=== PATIENT | male | born 1945 | race Caucasian/White ===

== ENCOUNTER → 2020-09-11 07:50 | Outpatient (CLI) | payer MEDICARE ==
[2020-09-11 08:33] LABS: INR 1.11 (0.85-1.17); PROTIME 13.2 SECONDS (11.6-15.0)
[2020-09-11 08:34] LABS: APTT 33.2 SECONDS (22.8-39.4)
[2020-09-11 08:41] LABS: % SATURATION 72 % (15-55); IRON 205 ug/dl (35-150); TOTAL IRON BIND CAPACITY 281 ug/dl (260-445); UNSAT IRON BIND CAPACITY 76 ug/dl (150-375)
[2020-09-11 08:58] LABS: ALBUMIN 3.5 g/dL (3.4-5.0); ALKALINE PHOSPHATASE 114 U/L (30-120); ALT (SGPT) 121 U/L (10-68); BILIRUBIN - DIRECT 0.13 mg/dL (0.00-0.30); BILIRUBIN - INDIRECT 0.87 mg/dL (0.00-1.00); CHOL - HDL RATIO 4.4 ratio (2.3-4.9); CHOLESTEROL, TOTAL 154 mg/dL (0-200); GAMMA GT 117 U/L (5-85); HDL CHOLESTEROL 35 mg/dL (32-96); LDL CHOLESTEROL 88 mg/dL (0-100); LDL-HDL RATIO 2.5 ratio (1.5-3.5); PROTEIN - SERUM 7.4 g/dL (6.4-8.2); TRIGLYCERIDE 158 mg/dL (30-200)
[2020-09-12 08:01] LABS: HAPTOGLOBIN 147 mg/dL (34-355)
[2020-09-12 10:12] LABS: ANA REFLEX - DIRECT Negative (Negative)
[2020-09-12 12:11] LABS: HEPATITIS C ANTIBODY <0.1 S/CO RAT (0.0-0.9)
== END | disposition home or self-care (01) ==
LOC: D.LAB 07:50
PROVIDERS: ATTEND Internal Medicine Gastroenterology
DX: R74.8 Abnormal levels of other serum enzymes (principal)